=== PATIENT | male | born 1965 | race African-American/Black ===

== ENCOUNTER 2018-01-09 23:21 | Inpatient (IN) ==
[2018-01-09] MEDS ORDERED: ROCURONIUM 100 MG/10 ML VIAL IV ONE (23:28)
[2018-01-09] MEDS ORDERED: ETOMIDATE 20 MG/10 ML VIAL IV ONE (23:28)
[2018-01-09] MEDS ORDERED: PROPOFOL 1,000 MG/100 ML BOTTLE IV ONE (23:47)
[2018-01-10] MEDS ORDERED: FUROSEMIDE 100 MG/10 ML VIAL IV STA (00:01)
[2018-01-10] MEDS ORDERED: FUROSEMIDE 40 MG/4 ML VIAL ONE (00:06)
[2018-01-10] MEDS ORDERED: ETOMIDATE 20 MG/10 ML VIAL IV ONE ×2 (00:12)
[2018-01-10] MEDS ORDERED: ROCURONIUM 100 MG/10 ML VIAL IV ONE ×2 (00:13)
[2018-01-10] MEDS ORDERED: VECURONIUM 10 MG VIAL IV ONE (00:17)
[2018-01-10 00:29] LABS: Basophils % 0.3 % (0.0-0.8); Eosinophils # 0.1 10*3/uL (0.0-0.87); Eosinophils % 1.1 % (0.00-10.9); Hematocrit 52.7 VOL% (42.0-52.0); Hemoglobin 15.2 GM/DL (14.0-18.0); Immature Granulocytes % 0.3 %; Immature Granulocytes Absolute 0.02 #; Lymphocytes # 1.6 10*3/uL (1.4-4.0); Lymphocytes % 24.8 % (21.2-54.2); Mean Corpuscular HGB Conc 28.8 GM/DL (32-36); Mean Corpuscular Hemoglobin 25 PG (27-34); Mean Corpuscular Volume 86.1 FL (87-102); Mean Platelet Volume 11.5 FL (9.6-12.0); Monocytes # 0.8 10*3/uL (0.11-0.8); Monocytes % 11.8 % (1.7-12.7); NRBC # 0.04 10*3/uL; Neutrophils % 61.7 % (38.7-73.9); Platelet Count 283 T/CUMM (130-400); Red Blood Count 6.12 MC/CUMM (3.8-5.5); White Blood Count 6.5 T/CUMM (4-12)
[2018-01-10 00:48] LABS: ABG HCO3 26.2 MMOL/L (20-26); ABG Oxygen Saturation 98.4 % (95-100); ABG PCO2 48.2 MM HG (35-48); ABG PH 7.375 (7.35-7.45); Allen Test Positive; Pt O2 Delivery Device Ventilator
[2018-01-10 00:50] LABS: Albumin 3.6 G/DL (3.4-5.0); Bilirubin,Total 0.6 MG/DL (0.2-1.0); Calcium 8.6 MG/DL (8.5-10.1); Osmolality,Calculated 274.4 MOS/KG (273-304); Potassium 4.8 MMOL/L (3.5-5.1); Total Protein 7.5 G/DL (6.4-8.3); Troponin I Only 0.022 NG/ML (0.00-0.045)
[2018-01-10 01:09] LABS: Apearance,Urine Slightly Hazy (Clear); Bacteria,Urine Occasional /HPF (Few); Bilirubin,Urine Negative (Negative); Blood, Urine Negative (Negative); Glucose,Urine (UA) Negative (Negative); Hyaline Casts,Urine 14 /LPF (0-3); Ketones,Urine Negative (Negative); Mucus,Urine Occasional /LPF (Occasional); Nitrite,Urine Negative (Negative); Protein,Urine 30 MG/DL; RBC,Urine 3 /HPF (0-4); Squamous Epithelial Cell,Urine Occasional /HPF (0-10); Urine Color Amber (Yellow); Urine Specific Gravity 1.014 (1.001-1.035); WBC,Urine 1 /HPF (0-6)
[2018-01-10] MEDS ORDERED: GLUCAGON 1 MG VIAL IM PRN (03:20)
[2018-01-10] MEDS ORDERED: DEXTROSE 50% 25 GM/50 ML VIAL IV PRN (03:20)
[2018-01-10] MEDS: PROPOFOL 1,000 MG/100 ML BOTTLE IV SCH ×6 (04:26→21:06)
[2018-01-10] MEDS: INSULIN LISPRO 100 UNIT/ML SUBCUT SCH ×5 (04:40→20:17)
[2018-01-10 05:27] LABS: ABG Base Excess 4.6 MMOL/L (-2.5-2.5); ABG HCO3 28.3 MMOL/L (20-26); ABG Oxygen Saturation 90.1 % (95-100); ABG PCO2 49.2 MM HG (35-48); ABG PH 7.401 (7.35-7.45); ABG TCO2 26.4 MMOL/L (23-27); Allen Test Positive; Pt O2 Delivery Device Ventilator
[2018-01-10] MEDS: PIPERACILLIN/TAZOBACTAM 3,375 MG in SODIUM CHLORIDE 0.9% 100 ML IV SCH ×2 (06:15→15:53)
[2018-01-10 06:34] LABS: Basophils % 0.4 % (0.0-0.8); Eosinophils # 0.1 10*3/uL (0.0-0.87); Hemoglobin 13.9 GM/DL (14.0-18.0); Immature Granulocytes % 0.3 %; Immature Granulocytes Absolute 0.02 #; Lymphocytes # 1.8 10*3/uL (1.4-4.0); Lymphocytes % 23.3 % (21.2-54.2); Mean Corpuscular HGB Conc 30.2 GM/DL (32-36); Mean Corpuscular Hemoglobin 25 PG (27-34); Mean Corpuscular Volume 83.2 FL (87-102); Monocytes % 12.2 % (1.7-12.7); NRBC # 0.03 10*3/uL; Neutrophils # 4.9 10*3/uL (1.4-7.4); Neutrophils % 62.8 % (38.7-73.9); Platelet Count 241 T/CUMM (130-400); Red Blood Count 5.53 MC/CUMM (3.8-5.5); Red Cell Distribution Width 19.5 % (9.3-17.3); White Blood Count 7.8 T/CUMM (4-12)
[2018-01-10 07:01] LABS: Calcium 8.2 MG/DL (8.5-10.1); Osmolality,Calculated 277.1 MOS/KG (273-304); Potassium 4.3 MMOL/L (3.5-5.1)
[2018-01-10] MEDS ORDERED: FUROSEMIDE 40 MG/4 ML VIAL IV ONE (07:06)
[2018-01-10] MEDS: ALBUTEROL/IPRATROPIUM 3 ML NEB RESP TX SCH ×3 (07:25→19:03)
[2018-01-10] MEDS: BUMETANIDE 1 MG/4 ML VIAL IV SCH (08:16)
[2018-01-10] MEDS: ENOXAPARIN 40 MG/0.4 ML SYRINGE SUBCUT SCH (08:16)
[2018-01-10] MEDS: ACETAMINOPHEN 325 MG TABLET PO PRN (11:09)
[2018-01-10] MEDS: PHENYLEPHRINE DRIP 40 MG/250 ML PREMIX IV SCH (14:50)
[2018-01-10] MEDS ORDERED: SODIUM CHLORIDE 0.9% 500 ML IV ONE (14:50)
[2018-01-10] MEDS: DILTIAZEM INJ 100 MG in SODIUM CHLORIDE 0.9% 100 ML IV SCH (20:06)
[2018-01-11] MEDS: PIPERACILLIN/TAZOBACTAM 3,375 MG in SODIUM CHLORIDE 0.9% 100 ML IV SCH ×4 (00:30→21:02)
[2018-01-11] MEDS: INSULIN LISPRO 100 UNIT/ML SUBCUT SCH ×7 (00:31→23:50)
[2018-01-11] MEDS: PROPOFOL 1,000 MG/100 ML BOTTLE IV SCH ×10 (00:31→23:10)
[2018-01-11] MEDS: ALBUTEROL/IPRATROPIUM 3 ML NEB RESP TX SCH ×4 (00:34→19:17)
[2018-01-11] MEDS: DILTIAZEM INJ 100 MG in SODIUM CHLORIDE 0.9% 100 ML IV SCH ×2 (03:16→20:33)
[2018-01-11 05:09] LABS: ABG HCO3 29.6 MMOL/L (20-26); ABG Oxygen Saturation 88.6 % (95-100); ABG PCO2 40.9 MM HG (35-48); ABG PH 7.475 (7.35-7.45); ABG PO2 57.1 MM HG (80-95); ABG TCO2 25.8 MMOL/L (23-27); Allen Test Positive; Pt O2 Delivery Device Ventilator
[2018-01-11 06:44] LABS: Basophils % 0.2 % (0.0-0.8); Eosinophils # 0.1 10*3/uL (0.0-0.87); Eosinophils % 1.4 % (0.00-10.9); Hematocrit 44.6 VOL% (42.0-52.0); Immature Granulocytes % 0.7 %; Immature Granulocytes Absolute 0.06 #; Lymphocytes # 1.6 10*3/uL (1.4-4.0); Lymphocytes % 20.3 % (21.2-54.2); Mean Corpuscular HGB Conc 31.4 GM/DL (32-36); Mean Corpuscular Hemoglobin 25 PG (27-34); Mean Corpuscular Volume 79.2 FL (87-102); Mean Platelet Volume 11.3 FL (9.6-12.0); NRBC # 0.02 10*3/uL; Neutrophils # 5.2 10*3/uL (1.4-7.4); Neutrophils % 65.4 % (38.7-73.9); Platelet Count 269 T/CUMM (130-400); Red Blood Count 5.63 MC/CUMM (3.8-5.5); Red Cell Distribution Width 19.7 % (9.3-17.3)
[2018-01-11] MEDS ORDERED: FUROSEMIDE 40 MG/4 ML VIAL IV ONE (07:01)
[2018-01-11 07:08] LABS: Calcium 8.2 MG/DL (8.5-10.1); Osmolality,Calculated 284.4 MOS/KG (273-304); Potassium 4.2 MMOL/L (3.5-5.1)
[2018-01-11] MEDS: methylPREDNISolone SOD SUC 40 MG/1 ML VIAL IV SCH ×3 (09:02→18:32)
[2018-01-11] MEDS: ENOXAPARIN 40 MG/0.4 ML SYRINGE SUBCUT SCH (09:02)
[2018-01-11] MEDS: BUMETANIDE 1 MG/4 ML VIAL IV SCH (09:02)
[2018-01-11] MEDS: METOPROLOL TARTRATE 5 MG/5 ML VIAL IV SCH ×2 (12:20→17:04)
[2018-01-11] MEDS: PHENYLEPHRINE DRIP 40 MG/250 ML PREMIX IV SCH (23:55)
[2018-01-12] MEDS: METOPROLOL TARTRATE 5 MG/5 ML VIAL IV SCH ×4 (00:05→18:17)
[2018-01-12] MEDS: ALBUTEROL/IPRATROPIUM 3 ML NEB RESP TX SCH ×4 (00:10→19:20)
[2018-01-12] MEDS: methylPREDNISolone SOD SUC 40 MG/1 ML VIAL IV SCH ×4 (00:57→20:06)
[2018-01-12] MEDS: PROPOFOL 1,000 MG/100 ML BOTTLE IV SCH ×11 (00:57→23:00)
[2018-01-12] MEDS: INSULIN LISPRO 100 UNIT/ML SUBCUT SCH ×5 (03:40→20:06)
[2018-01-12 04:31] LABS: ABG Base Excess 2.6 MMOL/L (-2.5-2.5); ABG HCO3 26.6 MMOL/L (20-26); ABG PCO2 39.1 MM HG (35-48); ABG PH 7.443 (7.35-7.45); ABG PO2 69.8 MM HG (80-95); ABG TCO2 23.1 MMOL/L (23-27)
[2018-01-12 04:32] LABS: Allen Test Positive; Pt O2 Delivery Device Ventilator
[2018-01-12] MEDS: PIPERACILLIN/TAZOBACTAM 3,375 MG in SODIUM CHLORIDE 0.9% 100 ML IV SCH ×3 (05:11→23:01)
[2018-01-12 05:34] LABS: Hemoglobin 13.7 GM/DL (14.0-18.0); Immature Granulocytes % 0.8 %; Immature Granulocytes Absolute 0.07 #; Lymphocytes # 0.7 10*3/uL (1.4-4.0); Lymphocytes % 8.4 % (21.2-54.2); Mean Corpuscular HGB Conc 30.4 GM/DL (32-36); Mean Corpuscular Hemoglobin 25 PG (27-34); Mean Corpuscular Volume 81.5 FL (87-102); Monocytes # 0.6 10*3/uL (0.11-0.8); Monocytes % 6.7 % (1.7-12.7); NRBC # 0.02 10*3/uL; Neutrophils % 84.1 % (38.7-73.9); Platelet Count 255 T/CUMM (130-400); Red Blood Count 5.52 MC/CUMM (3.8-5.5); Red Cell Distribution Width 19.4 % (9.3-17.3); White Blood Count 8.3 T/CUMM (4-12)
[2018-01-12 05:43] LABS: Calcium 8.2 MG/DL (8.5-10.1); Potassium 4.1 MMOL/L (3.5-5.1)
[2018-01-12] MEDS: ENOXAPARIN 40 MG/0.4 ML SYRINGE SUBCUT SCH (09:08)
[2018-01-12] MEDS: BUMETANIDE 1 MG/4 ML VIAL IV SCH (09:11)
[2018-01-12] MEDS: PANTOPRAZOLE 40 MG VIAL IV SCH (13:43)
[2018-01-12] MEDS: ENOXAPARIN 100 MG/ML SYRINGE SUBCUT SCH (13:43)
[2018-01-12] MEDS: PHENYLEPHRINE DRIP 40 MG/250 ML PREMIX IV SCH (15:25)
[2018-01-12] MEDS: DILTIAZEM INJ 100 MG in SODIUM CHLORIDE 0.9% 100 ML IV SCH (20:06)
[2018-01-13] MEDS: INSULIN LISPRO 100 UNIT/ML SUBCUT SCH ×6 (00:35→19:35)
[2018-01-13] MEDS: METOPROLOL TARTRATE 5 MG/5 ML VIAL IV SCH ×4 (00:36→19:36)
[2018-01-13] MEDS: ALBUTEROL/IPRATROPIUM 3 ML NEB RESP TX SCH ×4 (01:08→19:15)
[2018-01-13] MEDS: methylPREDNISolone SOD SUC 40 MG/1 ML VIAL IV SCH ×4 (01:39→19:36)
[2018-01-13] MEDS: PROPOFOL 1,000 MG/100 ML BOTTLE IV SCH ×10 (01:39→23:55)
[2018-01-13] MEDS: ENOXAPARIN 100 MG/ML SYRINGE SUBCUT SCH ×2 (01:39→13:37)
[2018-01-13 03:52] LABS: ABG HCO3 29.1 MMOL/L (20-26); ABG Oxygen Saturation 97.4 % (95-100); ABG PH 7.514 (7.35-7.45); ABG PO2 97.6 MM HG (80-95); ABG TCO2 30.3 MMOL/L (23-27)
[2018-01-13] MEDS: PIPERACILLIN/TAZOBACTAM 3,375 MG in SODIUM CHLORIDE 0.9% 100 ML IV SCH ×3 (05:39→21:40)
[2018-01-13 05:47] LABS: Basophils % 0.1 % (0.0-0.8); Hematocrit 45.3 VOL% (42.0-52.0); Hemoglobin 13.8 GM/DL (14.0-18.0); Immature Granulocytes % 0.7 %; Immature Granulocytes Absolute 0.06 #; Lymphocytes # 0.9 10*3/uL (1.4-4.0); Lymphocytes % 9.2 % (21.2-54.2); Mean Corpuscular HGB Conc 30.5 GM/DL (32-36); Mean Corpuscular Hemoglobin 25 PG (27-34); Mean Platelet Volume 11.3 FL (9.6-12.0); Monocytes # 0.6 10*3/uL (0.11-0.8); Monocytes % 6.7 % (1.7-12.7); Neutrophils # 7.7 10*3/uL (1.4-7.4); Neutrophils % 83.3 % (38.7-73.9); Platelet Count 261 T/CUMM (130-400); Red Blood Count 5.59 MC/CUMM (3.8-5.5); Red Cell Distribution Width 19.7 % (9.3-17.3); White Blood Count 9.2 T/CUMM (4-12)
[2018-01-13 06:15] LABS: Calcium 8.3 MG/DL (8.5-10.1); Potassium 4.1 MMOL/L (3.5-5.1)
[2018-01-13] MEDS: DILTIAZEM INJ 100 MG in SODIUM CHLORIDE 0.9% 100 ML IV SCH (08:45)
[2018-01-13] MEDS ORDERED: GLUCAGON 1 MG VIAL IM PRN (09:04)
[2018-01-13] MEDS ORDERED: DEXTROSE 50% 25 GM/50 ML VIAL IV PRN (09:04)
[2018-01-13] MEDS: BUMETANIDE 1 MG/4 ML VIAL IV SCH (09:16)
[2018-01-13] MEDS: FUROSEMIDE 40 MG/4 ML VIAL IV SCH (09:17)
[2018-01-13] MEDS: PANTOPRAZOLE 40 MG VIAL IV SCH (09:20)
[2018-01-13] MEDS: DILTIAZEM 60 MG TABLET PO SCH ×2 (11:37→17:31)
[2018-01-13] MEDS: PHENYLEPHRINE DRIP 40 MG/250 ML PREMIX IV SCH (17:14)
[2018-01-14] MEDS: METOPROLOL TARTRATE 5 MG/5 ML VIAL IV SCH ×2 (00:13→05:31)
[2018-01-14] MEDS: INSULIN LISPRO 100 UNIT/ML SUBCUT SCH ×6 (00:27→20:22)
[2018-01-14] MEDS: DILTIAZEM 60 MG TABLET PO SCH ×4 (00:27→17:20)
[2018-01-14] MEDS: ENOXAPARIN 100 MG/ML SYRINGE SUBCUT SCH ×2 (00:30→13:06)
[2018-01-14] MEDS: methylPREDNISolone SOD SUC 40 MG/1 ML VIAL IV SCH ×4 (00:30→18:37)
[2018-01-14] MEDS: ALBUTEROL/IPRATROPIUM 3 ML NEB RESP TX SCH ×4 (00:55→19:55)
[2018-01-14] MEDS: PROPOFOL 1,000 MG/100 ML BOTTLE IV SCH ×8 (02:30→23:57)
[2018-01-14 05:22] LABS: Immature Granulocytes % 0.6 %; Immature Granulocytes Absolute 0.04 #; Lymphocytes # 0.6 10*3/uL (1.4-4.0); Lymphocytes % 8.3 % (21.2-54.2); Mean Corpuscular HGB Conc 29.5 GM/DL (32-36); Mean Corpuscular Hemoglobin 24 PG (27-34); Mean Corpuscular Volume 82.7 FL (87-102); Mean Platelet Volume 11.8 FL (9.6-12.0); Monocytes # 0.4 10*3/uL (0.11-0.8); Monocytes % 5.2 % (1.7-12.7); Neutrophils # 6.2 10*3/uL (1.4-7.4); Neutrophils % 85.9 % (38.7-73.9); Platelet Count 275 T/CUMM (130-400); Red Blood Count 5.66 MC/CUMM (3.8-5.5); Red Cell Distribution Width 19.6 % (9.3-17.3); White Blood Count 7.2 T/CUMM (4-12)
[2018-01-14 05:41] LABS: Hematocrit 46.4 VOL% (42.0-52.0)
[2018-01-14 05:55] LABS: Osmolality,Calculated 298.7 MOS/KG (273-304); Potassium 4.1 MMOL/L (3.5-5.1)
[2018-01-14] MEDS: PIPERACILLIN/TAZOBACTAM 3,375 MG in SODIUM CHLORIDE 0.9% 100 ML IV SCH ×3 (06:14→21:46)
[2018-01-14 06:35] LABS: Prealbumin 20.2 MG/DL (20-40)
[2018-01-14] MEDS: BUMETANIDE 1 MG/4 ML VIAL IV SCH (08:08)
[2018-01-14] MEDS: FUROSEMIDE 40 MG/4 ML VIAL IV SCH (08:08)
[2018-01-14] MEDS: PANTOPRAZOLE 40 MG VIAL IV SCH (08:08)
[2018-01-14] MEDS: MULTIVITAMIN LIQUID (CENTRUM) 60 ML BOTTLE PO SCH (08:12)
[2018-01-14 09:45] LABS: ABG Base Excess 9.7 MMOL/L (-2.5-2.5); ABG HCO3 33.4 MMOL/L (20-26); ABG Oxygen Saturation 92.7 % (95-100); ABG PCO2 50.1 MM HG (35-48); ABG PH 7.459 (7.35-7.45); ABG PO2 67.2 MM HG (80-95); ABG TCO2 30.3 MMOL/L (23-27)
[2018-01-14] MEDS: PHENYLEPHRINE DRIP 40 MG/250 ML PREMIX IV SCH (14:49)
[2018-01-14] MEDS: INSULIN GLARGINE 100 UNIT/ML SUBCUT SCH (20:22)
[2018-01-15] MEDS: INSULIN LISPRO 100 UNIT/ML SUBCUT SCH ×6 (01:20→20:43)
[2018-01-15] MEDS: methylPREDNISolone SOD SUC 40 MG/1 ML VIAL IV SCH ×4 (01:20→20:42)
[2018-01-15] MEDS: ENOXAPARIN 100 MG/ML SYRINGE SUBCUT SCH ×2 (01:20→13:01)
[2018-01-15] MEDS: DILTIAZEM 60 MG TABLET PO SCH ×4 (01:20→18:18)
[2018-01-15] MEDS: ALBUTEROL/IPRATROPIUM 3 ML NEB RESP TX SCH ×4 (01:27→19:09)
[2018-01-15] MEDS: PROPOFOL 1,000 MG/100 ML BOTTLE IV SCH ×10 (02:11→23:11)
[2018-01-15 04:19] LABS: ABG Base Excess 9.8 MMOL/L (-2.5-2.5); ABG HCO3 35.6 MMOL/L (20-26); ABG Oxygen Saturation 90.2 % (95-100); ABG PCO2 51.8 MM HG (35-48); ABG PH 7.455 (7.35-7.45); ABG PO2 62.9 MM HG (80-95); ABG TCO2 37.2 MMOL/L (23-27); Allen Test Positive; Pt O2 Delivery Device Ventilator
[2018-01-15 05:09] LABS: Hematocrit 48.5 VOL% (42.0-52.0); Hemoglobin 14.9 GM/DL (14.0-18.0); Immature Granulocytes % 0.6 %; Immature Granulocytes Absolute 0.04 #; Lymphocytes # 0.5 10*3/uL (1.4-4.0); Lymphocytes % 8.2 % (21.2-54.2); Mean Corpuscular HGB Conc 30.7 GM/DL (32-36); Mean Corpuscular Hemoglobin 25 PG (27-34); Mean Corpuscular Volume 82.3 FL (87-102); Mean Platelet Volume 11.2 FL (9.6-12.0); Monocytes # 0.3 10*3/uL (0.11-0.8); Monocytes % 5.1 % (1.7-12.7); Neutrophils # 5.4 10*3/uL (1.4-7.4); Neutrophils % 86.1 % (38.7-73.9); Platelet Count 255 T/CUMM (130-400); Red Blood Count 5.89 MC/CUMM (3.8-5.5); Red Cell Distribution Width 19.6 % (9.3-17.3); White Blood Count 6.2 T/CUMM (4-12)
[2018-01-15 05:47] LABS: Albumin 2.8 G/DL (3.4-5.0); Bilirubin,Total 0.8 MG/DL (0.2-1.0); Calcium 8.3 MG/DL (8.5-10.1); Osmolality,Calculated 300.8 MOS/KG (273-304)
[2018-01-15] MEDS: PIPERACILLIN/TAZOBACTAM 3,375 MG in SODIUM CHLORIDE 0.9% 100 ML IV SCH ×3 (05:47→21:31)
[2018-01-15] MEDS: PANTOPRAZOLE 40 MG VIAL IV SCH (08:25)
[2018-01-15] MEDS: BUMETANIDE 1 MG/4 ML VIAL IV SCH (08:25)
[2018-01-15] MEDS: FUROSEMIDE 40 MG/4 ML VIAL IV SCH (08:26)
[2018-01-15] MEDS: MULTIVITAMIN LIQUID (CENTRUM) 60 ML BOTTLE PO SCH (08:27)
[2018-01-15] MEDS: PHENYLEPHRINE DRIP 40 MG/250 ML PREMIX IV SCH (14:53)
[2018-01-15] MEDS: INSULIN GLARGINE 100 UNIT/ML SUBCUT SCH (20:43)
[2018-01-16] MEDS: ALBUTEROL/IPRATROPIUM 3 ML NEB RESP TX SCH ×4 (00:05→19:46)
[2018-01-16] MEDS: INSULIN LISPRO 100 UNIT/ML SUBCUT SCH ×6 (00:45→20:39)
[2018-01-16] MEDS: DILTIAZEM 60 MG TABLET PO SCH ×4 (00:45→17:48)
[2018-01-16] MEDS: ENOXAPARIN 100 MG/ML SYRINGE SUBCUT SCH (00:46)
[2018-01-16] MEDS: methylPREDNISolone SOD SUC 40 MG/1 ML VIAL IV SCH ×4 (00:46→20:38)
[2018-01-16] MEDS: ACETAMINOPHEN 325 MG TABLET PO PRN (00:48)
[2018-01-16] MEDS ORDERED: DILTIAZEM 50 MG/10 ML VIAL IV ONE (01:15)
[2018-01-16] MEDS ORDERED: DILTIAZEM 100 MG VIAL.ADD IV ONE (01:18)
[2018-01-16] MEDS ORDERED: SODIUM CHLORIDE 0.9% 100 ML IV ONE (01:18)
[2018-01-16] MEDS: DILTIAZEM INJ 100 MG in SODIUM CHLORIDE 0.9% 100 ML IV SCH (01:20)
[2018-01-16] MEDS: PROPOFOL 1,000 MG/100 ML BOTTLE IV SCH ×3 (01:32→23:58)
[2018-01-16 04:36] LABS: Allen Test Positive; Pt O2 Delivery Device Ventilator
[2018-01-16 04:42] LABS: ABG Base Excess 11.7 MMOL/L (-2.5-2.5); ABG HCO3 36.6 MMOL/L (20-26); ABG Oxygen Saturation 88.9 % (95-100); ABG PCO2 47.7 MM HG (35-48); ABG PH 7.503 (7.35-7.45); ABG PO2 57.1 MM HG (80-95); ABG TCO2 38.1 MMOL/L (23-27)
[2018-01-16 06:42] LABS: Basophils % 0.1 % (0.0-0.8); Hematocrit 49.2 VOL% (42.0-52.0); Hemoglobin 14.7 GM/DL (14.0-18.0); Immature Granulocytes % 0.4 %; Immature Granulocytes Absolute 0.03 #; Lymphocytes # 0.5 10*3/uL (1.4-4.0); Lymphocytes % 7.4 % (21.2-54.2); Mean Corpuscular HGB Conc 29.9 GM/DL (32-36); Mean Corpuscular Hemoglobin 24 PG (27-34); Mean Corpuscular Volume 81.7 FL (87-102); Mean Platelet Volume 11.1 FL (9.6-12.0); Monocytes # 0.4 10*3/uL (0.11-0.8); Monocytes % 5.4 % (1.7-12.7); Neutrophils # 5.9 10*3/uL (1.4-7.4); Neutrophils % 86.7 % (38.7-73.9); Platelet Count 242 T/CUMM (130-400); Red Blood Count 6.02 MC/CUMM (3.8-5.5); Red Cell Distribution Width 19.9 % (9.3-17.3); White Blood Count 6.9 T/CUMM (4-12)
[2018-01-16 06:44] LABS: Calcium 8.7 MG/DL (8.5-10.1); Osmolality,Calculated 306.4 MOS/KG (273-304); Potassium 3.7 MMOL/L (3.5-5.1)
[2018-01-16] MEDS ORDERED: MANNITOL 100 GM in PREMIX 1 EACH IV ONE ×2 (06:55→19:00)
[2018-01-16] MEDS ORDERED: PHYTONADIONE 10 MG/1 ML AMP IV ONE (06:58)
[2018-01-16 07:00] LABS: Hypochromasia 1+; Microcytosis 1+; Ovalocytes Slight; Platelet Estimate Normal; Target Cells Slight
[2018-01-16] MEDS: PIPERACILLIN/TAZOBACTAM 3,375 MG in SODIUM CHLORIDE 0.9% 100 ML IV SCH ×3 (07:29→21:35)
[2018-01-16] MEDS: PANTOPRAZOLE 40 MG VIAL IV SCH (10:08)
[2018-01-16] MEDS: BUMETANIDE 1 MG/4 ML VIAL IV SCH (10:12)
[2018-01-16] MEDS: FUROSEMIDE 40 MG/4 ML VIAL IV SCH (10:20)
[2018-01-16] MEDS: MULTIVITAMIN LIQUID (CENTRUM) 60 ML BOTTLE PO SCH (10:31)
[2018-01-16] MEDS: INSULIN GLARGINE 100 UNIT/ML SUBCUT SCH (20:39)
[2018-01-17] MEDS: DILTIAZEM 60 MG TABLET PO SCH ×2 (01:18→01:31)
[2018-01-17] MEDS: INSULIN LISPRO 100 UNIT/ML SUBCUT SCH (01:29)
[2018-01-17] MEDS: DILTIAZEM INJ 100 MG in SODIUM CHLORIDE 0.9% 100 ML IV SCH (01:31)
[2018-01-17] MEDS: methylPREDNISolone SOD SUC 40 MG/1 ML VIAL IV SCH (01:31)
[2018-01-17] MEDS: ALBUTEROL/IPRATROPIUM 3 ML NEB RESP TX SCH (01:48)
[2018-01-17 03:17] VITALS: BP 109/91
== END 2018-01-17 02:30 | disposition hospice, home (50) | DRG 207 ==
LOC: EDBD → EDUNIT# → N.ED 23:21 → N.EDINP 01-10 01:11 → SUATTDRO 01-10 01:11 → N.CC 01-10 02:10
PROVIDERS: ATTEND Internal Medicine Infectious Disease